=== PATIENT | female | born 1990 | race Caucasian/White ===

== ENCOUNTER 2019-03-05 09:31 | Inpatient (IN) | payer BC ==
[2019-03-07] MEDS ORDERED: Sodium Chloride 0.9% 10 ML Syringe FLUSH PRN (07:29)
[2019-03-07] MEDS: Lactated Ringers 1,000 ML IV SCH ×2 (08:25→14:44)
[2019-03-07] MEDS ORDERED: Nalbuphine 10 MG/1 ML Vial IVPUSH PRN ×2 (11:48→14:42)
[2019-03-07] MEDS ORDERED: Scopolamine 1.5 MG Transdermal Patch ONE (13:57)
[2019-03-07] MEDS ORDERED: Scopolamine 1.5 MG Transdermal Patch TRDERM PRN (13:58)
[2019-03-07] MEDS ORDERED: diphenhydrAMINE 50 MG/ML SDV IVPUSH PRN (14:42)
[2019-03-07] MEDS ORDERED: Promethazine 12.5 MG in Sodium Chloride 0.9% 50 ML IV PRN (14:42)
[2019-03-07] MEDS ORDERED: Naloxone 0.4 MG/ML SDV IVPUSH PRN (14:42)
[2019-03-07] MEDS ORDERED: Ondansetron 4 MG/2 ML SDV IVPUSH PRN (14:42)
[2019-03-07] MEDS ORDERED: Scopolamine 1.5 MG Transdermal Patch TOP ONE (14:42)
[2019-03-07] MEDS ORDERED: diphenhydrAMINE 50 MG/ML SDV IV PRN (14:42)
[2019-03-07] MEDS ORDERED: ePHEDrine 50 MG/ML SDV IVPUSH PRN (14:42)
[2019-03-07] MEDS ORDERED: Naltrexone 50 MG Tab PO PRN (14:42)
[2019-03-07] MEDS ORDERED: Famotidine/Normal Saline 20 MG in Premix Bag 1 BAG IV PRN (14:42)
[2019-03-07] MEDS ORDERED: Lactated Ringers 500 ML IV SCH ×2 (14:45)
--- NOTE | 2019-03-07 16:35 | PCM.DEL ---
L & D Note - General Info Date of Service: 03/07/19 Mother's Due Date: 03/05/19 - Delivery Note Labor: Spontaneous, Induced by Oxytocin Delivery Outcome: Livebirth Infant Delivery Method: Spontaneous Vaginal Delivery-Single ([place]) Delivery Mode: Vacuum Extraction Presentation: Left Occiput Anterior (TAINA) Nuchal Cord: None Prep: Povidone-Iodine (Betadine Anesthesia Type: Intrathecal Amniotic Fluid Description: Clear Episiotomy Type: Midline Laceration: 4th Degree Suture type: Vicryl Suture size: 3-0 Placenta: Intact, Spontaneous, Expressed Cord: 3 Vessels Resuscitation Needed: No [place]: Stimulated, [place] Used Second Stage Interventions: Reports: Second Nurse Assessed Progress of Descent, Second Nurse Reviewed Contraction Pattern, Encouragement Given, Pushing Effectively Induction Criteria - Corona Score Corona Score Dilation: 1-2 cm Corona Score Effacement: 40-50% Corona Score Infant's Station: +1, +2 Corona Score Consistency: Medium Corona Score Cervix Position: Midposition Corona Score Total: 7 Corona Score Presenting Part: Reports: Cephalic - Induction Gestational Age >/= 39 wks: Yes Estimated Pelvis: Reports: Adequate Reassuring Monitoring Strip: Yes Absence of Tachy Systole: Yes - Augmentation Estimated Pelvis: Reports: Adequate Weight Estimated:: Reports: AGA Reassuring Monitoring Strip: Yes Absence of Tachy Systole: Yes Vacuum Extractor Progress Note - Alternative Labor Strategies Considered Alternative Labor Strategies Considered:: Reports: Yes Strategies Considered:: Reports: Contraction Intensity Adequate, Position Changes Used to Facilitate Rotation & Descent, Empty Bladder, Rest Indications Considered:: Reports: Yes Indications:: Reports: Prolonged 2nd Stage, Shortening of 2nd Stage for Maternal Benefit, Suspicion of Immediate or Potential Compromise Time Out:: Reports: Yes Comments:: heart tones were baseline of 100,and minimal variability. Since she was + 3 station,an operative delivery was discussed with the patient,and risks reviewed. Agreed to proceed. - Patient Prepared Patient Prepared:: Reports: Yes Informed Consent:: Reports: Yes Risks: Reports: Yes Risks Include:: Reports: Laceration Anesthesia/Analgesia Adequate:: Reports: Yes Comments:: I attempted to empty bladder by straight cath,no success. - Probability of Success High Probability of Success:: Reports: Yes Weight Estimated:: Reports: AGA Patient Diabetic:: Reports: No Pelvis Adequate:: Reports: Yes Position:: TAINA Asynclitic:: Reports: No Station:: +3 - Application Time Maximum Application Time & Number of Pop-Offs Predetermined:: Reports: Yes Maximum Pressure Maintained in [place] (cm Hg):: 40 Total Application Time (min): *max=20min: 15 (Released during rest.) Number of Times Cup Disengaged:: 4 Type of Vacuum Used:: Reports: Cup: Blas type Vacuum Extraction: Successful - Exit Strategy Exit strategy available:: Reports: Yes and resuscitation teams readily available:: Reports: Yes Comments:: Cup placed on J point.There was noticeable descent and progress with each pull/ contraction.I also created a midline episiotomy during the contraction,to facilitate delivery.Baby was able to be delivered during the 5th pull. - General Info Date of Service: 03/08/19 Functional Status: Reports: Pain Controlled - Review of Systems General: Reports: No Symptoms HEENT: Reports: No Symptoms Pulmonary: Reports: No Symptoms Cardiovascular: Reports: No Symptoms Gastrointestinal: Reports: No Symptoms Genitourinary: Reports: No Symptoms Musculoskeletal: Reports: No Symptoms Skin: Reports: No Symptoms Neurological: Reports: No Symptoms Psychiatric: Reports: No Symptoms - Patient Data Vitals - Most Recent: Last Vital Signs Temp 98.1 F 03/07/19 07:30 Pulse 98 03/07/19 09:33 Resp 18 03/07/19 07:30 BP 132/91 H 03/07/19 09:30 Pulse Ox 97 03/07/19 07:39 Weight - Most Recent: 83.915 kg Med Orders - Current: Current Medications Diphenhydramine HCl (Benadryl) 25 mg IVPUSH ASDIRECTED PRN PRN Reason: EXTRAPYRAMIDAL SIDE EFFECTS Diphenhydramine HCl (Benadryl) 25 mg IV ASDIRECTED PRN PRN Reason: PRURITUS Docusate Sodium (Colace) 100 mg PO BID PRN PRN Reason: Constipation Ephedrine Sulfate (Ephedrine Sulfate) 0 mg IVPUSH ASDIRECTED PRN PRN Reason: Hypotension Lactated Ringer's (Ringers, Lactated) 1,000 mls @ 125 mls/hr IV ASDIRECTED ADRI Last Admin: 03/07/19 14:44 Dose: 125 mls/hr Oxytocin/Sodium Chloride (Pitocin In Ns 20 Units/1,000 Ml) 20 unit in 1,000 mls @ 6 mls/hr IV TITRATE ADRI; Protocol Last Titration: 03/07/19 09:30 Dose: 6 munits/min, 18 mls/hr Famotidine 20 mg/ Premix 50 mls @ 100 mls/hr IV ONETIME PRN PRN Reason: PRURITIS Lactated Ringer's (Ringers, Lactated) 500 mls @ 999 mls/hr IV .SEECOMMENT ADRI Lactated Ringer's (Ringers, Lactated) 500 mls @ 999 mls/hr IV BOLUS ADRI Promethazine HCl 12.5 mg/ (Sodium Chloride) 50.5 mls @ 200 mls/hr IV Q4H PRN PRN Reason: Nausea/Vomiting Ibuprofen (Motrin) 600 mg PO Q4H PRN PRN Reason: Pain Miscellaneous Information (Remove Patch) 1 ea TRDERM ONETIME ONE Stop: 03/08/19 17:01 Nalbuphine HCl (Nubain) 10 mg IVPUSH Q1H PRN PRN Reason: PRURITUS Naloxone HCl (Narcan) 0.1 mg IVPUSH ASDIRECTED PRN PRN Reason: Respiratory Depression Naltrexone HCl (Naltrexone) 25 mg PO ASDIRECTED PRN PRN Reason: REVERSAL Ondansetron HCl (Zofran) 4 mg IVPUSH Q4H PRN PRN Reason: Nausea/Vomiting Oxycodone/Acetaminophen (Percocet 325-5 Mg) 1 tab PO Q4H PRN PRN Reason: Pain (moderate 4-6) Sodium Chloride (Saline Flush) 10 ml FLUSH ASDIRECTED PRN PRN Reason: Keep Vein Open Discontinued Medications Nalbuphine HCl (Nubain) 10 mg IVPUSH Q3H PRN PRN Reason: Pain Last Admin: 03/07/19 11:59 Dose: 10 mg Scopolamine (Transderm-Scop) Confirm Administered Dose 1.5 mg .ROUTE .STK-MED ONE Stop: 03/07/19 13:58 Scopolamine (Transderm-Scop) 1.5 mg TOP ONETIME ONE Stop: 03/07/19 14:43 - Exam General: Alert, Oriented HEENT: Pupils Equal, Pupils Reactive, EOMI, Mucous Membr. Moist/[place] Neck: Supple Lungs: Clear to Auscultation, Normal Respiratory Effort Cardiovascular: Regular Rate, Regular Rhythm GI/Abdominal Exam: Normal Bowel Sounds, Soft, Non-Tender, No Organomegaly, No Distention, No Abnormal Bruit, No Mass, Pelvis Stable (Female) Exam: Normal External Exam, Normal Speculum Exam, Normal Bimanual Exam Back Exam: Normal Inspection, Full Range of Motion Extremities: Normal Inspection, Normal Range of Motion, Non-Tender, No Pedal Edema, Normal Capillary Refill Skin: Warm, Dry, Intact Wound/Incisions: Healing Well Neurological: No New Focal Deficit Psy/Mental Status: Alert, Normal Affect, Normal Mood - Problem List & Annotations (1) Vaginal delivery SNOMED Code(s): 580324684 Code(s): O80 - ENCOUNTER FOR FULL-TERM UNCOMPLICATED DELIVERY Status: Acute Current Visit: Yes (2) Fourth degree perineal laceration SNOMED Code(s): 372118513 Code(s): O70.3 - FOURTH DEGREE PERINEAL LACERATION DURING DELIVERY Status: Acute Current Visit: Yes (3) care and examination SNOMED Code(s): 887321361, 568268795 Code(s): Z39.2 - ENCOUNTER FOR ROUTINE FOLLOW-UP Status: Acute Current Visit: Yes - Problem List Review Problem List Initiated/Reviewed/Updated: Yes - My Orders Last 24 Hours: My Active Orders 03/07/19 07:27 Patient Status [ADT] Routine Monitoring [RC] CONTINUOUS Resuscitation Status Routine 03/07/19 07:29 Sodium Chloride 0.9% [Saline Flush] 10 ml FLUSH ASDIRECTED PRN Peripheral IV Insertion Adult [OM.PC] Routine 03/07/19 07:53 Communication Order [RC] ASDIRECTED Communication Order [RC] ASDIRECTED Communication Order [RC] ASDIRECTED Communication Order [RC] ASDIRECTED Notify Provider [RC] PRN Notify Provider [RC] STAT Vital Signs [RC] PER UNIT ROUTINE 03/07/19 08:00 Lactated Ringers [Ringers, Lactated] 1,000 ml IV ASDIRECTED 03/07/19 08:15 Oxytocin/Normal Saline [Pitocin in NS 20 Units/1,000 ML] 20 unit in 1,000 ml IV TITRATE 03/07/19 16:30 Vital Signs [RC] PFP Acetaminophen/oxyCODONE [Percocet 325-5 MG] 1 tab PO Q4H PRN Docusate Sodium [Colace] 100 mg PO BID PRN Ibuprofen [Motrin] 600 mg PO Q4H PRN Nothing Per Rectum [WOMSER] Per Unit Routine Perineal Care [OM.PC] Per Unit Routine 03/07/19 Dinner Regular Diet [DIET] 03/08/19 05:11 CBC WITH AUTO DIFF [HEME] AM - Plan Plan:: After delivery,patient was stable.Dr Haley came in for 4th degree repair.See his note
[2019-03-07] MEDS ORDERED: Morphine PF 10 MG/10 ML SDV EPIDUR ONE (19:29)
[2019-03-07] MEDS ORDERED: fentaNYL 100 MCG/2 ML SDV IV ONE (19:29)
[2019-03-08] MEDS: Ibuprofen 600 MG Tab PO PRN ×4 (01:27→20:43)
[2019-03-08] MEDS: Docusate Sodium 100 MG Cap PO PRN ×2 (07:46→20:44)
[2019-03-08] MEDS: Acetaminophen/oxyCODONE 325-5 MG Tab PO PRN ×2 (09:20→18:31)
--- NOTE | 2019-03-08 10:55 | PROC ---
DATE OF PROCEDURE: 03/07/2019 HISTORY: Cintia is a 28-year-old primi who came in labor and delivered vaginally an infant with vacuum assist. She sustained a vaginal and rectal laceration, and I was asked to come in to assist in closure. The patient had received an intrathecal anesthetic and had good anesthesia of her vagina and perineum. Inspection was made, revealing a laceration that extended through the posterior vaginal mucosa through the STP muscle with a small 4th degree extension approximately 1 cm off the rectal canal. Tissues were exposed with Gelpi retractor. Using running 3-0 locked suture, the small rectal laceration was closed. Following that, the 2 ends of the STP muscle were identified, grasped with Allis clamps and closed with figure-of- eight suture. The deep rectovaginal space was then closed with interrupted 3-0 Vicryl. Following this, the vaginal mucosa was repaired from the apex to the anal border with subcutaneous closure of the perineal skin with a subcutaneous running closure of the perineal skin. Final vaginal and rectal checks were done and showed intact mucosa and a firmly bolstered STP muscle. The patient is instructed to avoid any rectal insertions such as Tylenol or temperature measurements, enemas, etc. Keep her stools very soft as well. I also discussed with her there was the continued risk of possible rectovaginal fistula because of the 4th degree laceration but, with careful closure obtained, should mitigate these risks. /[id number] IGOR/LINDA
--- NOTE | 2019-03-08 16:11 | PCM.PNPP ---
- General Info Date of Service: 03/08/19 Subjective Update: Doing well. Eating.Lochia has improved. pain well controlled. Functional Status: Reports: Pain Controlled - Review of Systems General: Reports: No Symptoms HEENT: Reports: No Symptoms Pulmonary: Reports: No Symptoms Cardiovascular: Reports: No Symptoms Gastrointestinal: Reports: No Symptoms Genitourinary: Reports: No Symptoms Musculoskeletal: Reports: No Symptoms Skin: Reports: No Symptoms Neurological: Reports: No Symptoms Psychiatric: Reports: No Symptoms - General Info Date of Service: 03/08/19 - Patient Data Vital Signs - Most Recent: Last Vital Signs Temp 98 F 03/08/19 08:00 Pulse 82 03/08/19 08:00 Resp 18 03/08/19 08:00 BP 116/70 03/08/19 08:00 Pulse Ox 96 03/08/19 08:00 Weight - Most Recent: 83.915 kg I&O - Last 24 Hours: Intake & Output 03/08/19 03/08/19 03/08/19 06:59 14:59 22:59 Intake Total 600 Balance 600 Lab Results - Last 24 Hours: Laboratory Results - last 24 hr 03/08/19 Range/Units 06:40 WBC 6.9 (4.5-12.0) X10-3/uL RBC 3.85 (3.23-5.20) x10(6)uL Hgb 9.3 L (11.5-15.5) g/dL Hct 29.0 L (30.0-51.3) % MCV 75.4 L (80-96) fL MCH 24.2 L (27.7-33.6) pg MCHC 32.1 L (32.2-35.4) g/dL RDW 14.8 (11.5-15.5) % Plt Count 177 (125-369) X10(3)uL MPV 10.6 H (7.4-10.4) fL Neut % (Auto) 62.1 (46-82) % Lymph % (Auto) 29.3 (13-37) % [place] % (Auto) 7.1 (4-12) % Eos % (Auto) 1 (1.0-5.0) % Baso % (Auto) 0 (0-2) % Neut # (Auto) 4.3 (1.6-8.3) # Lymph # (Auto) 2.0 (0.6-5.0) # [place] # (Auto) 0.5 (0.0-1.3) # Eos # (Auto) 0.1 (0.0-0.8) # Baso # (Auto) 0.0 (0.0-0.2) # Med Orders - Current: Current Medications Diphenhydramine HCl (Benadryl) 25 mg IVPUSH ASDIRECTED PRN PRN Reason: EXTRAPYRAMIDAL SIDE EFFECTS Diphenhydramine HCl (Benadryl) 25 mg IV ASDIRECTED PRN PRN Reason: PRURITUS Docusate Sodium (Colace) 100 mg PO BID PRN PRN Reason: Constipation Last Admin: 03/08/19 07:46 Dose: 100 mg Ephedrine Sulfate (Ephedrine Sulfate) 0 mg IVPUSH ASDIRECTED PRN PRN Reason: Hypotension Lactated Ringer's (Ringers, Lactated) 1,000 mls @ 125 mls/hr IV ASDIRECTED ADRI Last Admin: 03/07/19 14:44 Dose: 125 mls/hr Oxytocin/Sodium Chloride (Pitocin In Ns 20 Units/1,000 Ml) 20 unit in 1,000 mls @ 6 mls/hr IV TITRATE ADRI; Protocol Last Titration: 03/07/19 15:40 Dose: 999 mls/hr Famotidine 20 mg/ Premix 50 mls @ 100 mls/hr IV ONETIME PRN PRN Reason: PRURITIS Lactated Ringer's (Ringers, Lactated) 500 mls @ 999 mls/hr IV .SEECOMMENT ADRI Lactated Ringer's (Ringers, Lactated) 500 mls @ 999 mls/hr IV BOLUS ADRI Promethazine HCl 12.5 mg/ (Sodium Chloride) 50.5 mls @ 200 mls/hr IV Q4H PRN PRN Reason: Nausea/Vomiting Ibuprofen (Motrin) 600 mg PO Q4H PRN PRN Reason: Pain Last Admin: 03/08/19 13:34 Dose: 600 mg Miscellaneous Information (Remove Patch) 1 ea TRDERM ONETIME ONE Stop: 03/08/19 17:01 Nalbuphine HCl (Nubain) 10 mg IVPUSH Q1H PRN PRN Reason: PRURITUS Naloxone HCl (Narcan) 0.1 mg IVPUSH ASDIRECTED PRN PRN Reason: Respiratory Depression Naltrexone HCl (Naltrexone) 25 mg PO ASDIRECTED PRN PRN Reason: REVERSAL Last Admin: 03/07/19 16:52 Dose: 25 mg Ondansetron HCl (Zofran) 4 mg IVPUSH Q4H PRN PRN Reason: Nausea/Vomiting Last Admin: 03/07/19 18:01 Dose: 4 mg Oxycodone/Acetaminophen (Percocet 325-5 Mg) 1 tab PO Q4H PRN PRN Reason: Pain (moderate 4-6) Last Admin: 03/08/19 09:20 Dose: 1 tab Sodium Chloride (Saline Flush) 10 ml FLUSH ASDIRECTED PRN PRN Reason: Keep Vein Open Discontinued Medications Nalbuphine HCl (Nubain) 10 mg IVPUSH Q3H PRN PRN Reason: Pain Last Admin: 03/07/19 11:59 Dose: 10 mg Scopolamine (Transderm-Scop) Confirm Administered Dose 1.5 mg .ROUTE .STK-MED ONE Stop: 03/07/19 13:58 Last Admin: 03/07/19 17:30 Dose: Not Given Scopolamine (Transderm-Scop) 1.5 mg TOP ONETIME ONE Stop: 03/07/19 14:43 Last Admin: 03/07/19 13:58 Dose: 1.5 mg - Interaction Disposition, : [place] in Room with Family Feeding: Attempted ; Nursed Fair/Poor Support Person: - Recovery Exam Fundal Tone: Firm Fundal Level: 1 Fingerbreadths Above Umbilicus Fundal Placement: Right Lochia Amount: Moderate Lochia Color: Rubra/Red Perineum Description: Intact, Minimal Bruising/Swelling, Redness, Edematous, Hematoma Episiotomy/Laceration: Approximated - Problem List & Annotations (1) Vaginal delivery SNOMED Code(s): 822197341 Code(s): O80 - ENCOUNTER FOR FULL-TERM UNCOMPLICATED DELIVERY Status: Acute Current Visit: Yes (2) Fourth degree perineal laceration SNOMED Code(s): 109726564 Code(s): O70.3 - FOURTH DEGREE PERINEAL LACERATION DURING DELIVERY Status: Acute Current Visit: Yes - Problem List Review Problem List Initiated/Reviewed/Updated: Yes - My Orders Last 24 Hours: My Active Orders 03/07/19 16:30 Vital Signs [RC] 00,08,16 Acetaminophen/oxyCODONE [Percocet 325-5 MG] 1 tab PO Q4H PRN Docusate Sodium [Colace] 100 mg PO BID PRN Ibuprofen [Motrin] 600 mg PO Q4H PRN Nothing Per Rectum [WOMSER] Per Unit Routine Perineal Care [OM.PC] Per Unit Routine 03/07/19 Dinner Regular Diet [DIET] - Plan Plan:: Continue current plan.
[2019-03-08] MEDS ORDERED: Measles, Mumps & Rubella Vaccine 0.5 ML SDV SUBCUT ONE (18:56)
[2019-03-09] MEDS: Ibuprofen 600 MG Tab PO PRN ×2 (03:33→14:02)
[2019-03-09] MEDS: Acetaminophen/oxyCODONE 325-5 MG Tab PO PRN ×3 (06:02→19:26)
--- NOTE | 2019-03-09 07:36 | PCM.PNPP ---
- General Info Date of Service: 03/09/19 Subjective Update: Doing well. Eating.Lochia has improved. pain well controlled. Functional Status: Reports: Pain Controlled, Tolerating Diet - Review of Systems General: Reports: No Symptoms HEENT: Reports: No Symptoms Pulmonary: Reports: No Symptoms Cardiovascular: Reports: No Symptoms Gastrointestinal: Reports: No Symptoms Genitourinary: Reports: No Symptoms Musculoskeletal: Reports: No Symptoms Skin: Reports: No Symptoms Neurological: Reports: No Symptoms Psychiatric: Reports: No Symptoms - General Info Date of Service: 03/09/19 - Patient Data Vital Signs - Most Recent: Last Vital Signs Temp 98.3 F 03/08/19 23:00 Pulse 74 03/08/19 23:00 Resp 18 03/08/19 23:00 BP 123/75 03/08/19 23:00 Pulse Ox 98 03/08/19 23:00 Weight - Most Recent: 83.915 kg Med Orders - Current: Current Medications Diphenhydramine HCl (Benadryl) 25 mg IVPUSH ASDIRECTED PRN PRN Reason: EXTRAPYRAMIDAL SIDE EFFECTS Diphenhydramine HCl (Benadryl) 25 mg IV ASDIRECTED PRN PRN Reason: PRURITUS Docusate Sodium (Colace) 100 mg PO BID PRN PRN Reason: Constipation Last Admin: 03/08/19 20:44 Dose: 100 mg Ephedrine Sulfate (Ephedrine Sulfate) 0 mg IVPUSH ASDIRECTED PRN PRN Reason: Hypotension Lactated Ringer's (Ringers, Lactated) 1,000 mls @ 125 mls/hr IV ASDIRECTED ADRI Last Admin: 03/07/19 14:44 Dose: 125 mls/hr Oxytocin/Sodium Chloride (Pitocin In Ns 20 Units/1,000 Ml) 20 unit in 1,000 mls @ 6 mls/hr IV TITRATE ADRI; Protocol Last Titration: 03/07/19 15:40 Dose: 999 mls/hr Famotidine 20 mg/ Premix 50 mls @ 100 mls/hr IV ONETIME PRN PRN Reason: PRURITIS Lactated Ringer's (Ringers, Lactated) 500 mls @ 999 mls/hr IV .SEECOMMENT ADRI Lactated Ringer's (Ringers, Lactated) 500 mls @ 999 mls/hr IV BOLUS ADRI Promethazine HCl 12.5 mg/ (Sodium Chloride) 50.5 mls @ 200 mls/hr IV Q4H PRN PRN Reason: Nausea/Vomiting Ibuprofen (Motrin) 600 mg PO Q4H PRN PRN Reason: Pain Last Admin: 03/09/19 03:33 Dose: 600 mg Nalbuphine HCl (Nubain) 10 mg IVPUSH Q1H PRN PRN Reason: PRURITUS Naloxone HCl (Narcan) 0.1 mg IVPUSH ASDIRECTED PRN PRN Reason: Respiratory Depression Naltrexone HCl (Naltrexone) 25 mg PO ASDIRECTED PRN PRN Reason: REVERSAL Last Admin: 03/07/19 16:52 Dose: 25 mg Ondansetron HCl (Zofran) 4 mg IVPUSH Q4H PRN PRN Reason: Nausea/Vomiting Last Admin: 03/07/19 18:01 Dose: 4 mg Oxycodone/Acetaminophen (Percocet 325-5 Mg) 1 tab PO Q4H PRN PRN Reason: Pain (moderate 4-6) Last Admin: 03/09/19 06:02 Dose: 1 tab Sodium Chloride (Saline Flush) 10 ml FLUSH ASDIRECTED PRN PRN Reason: Keep Vein Open Discontinued Medications Measles/Mumps/Rubella Vaccine Live (M-M-R Ii Vaccine) 0.5 ml SUBCUT .ONCE ONE Stop: 03/08/19 18:57 Miscellaneous Information (Remove Patch) 1 ea TRDERM ONETIME ONE Stop: 03/08/19 17:01 Last Admin: 03/08/19 18:32 Dose: 1 ea Nalbuphine HCl (Nubain) 10 mg IVPUSH Q3H PRN PRN Reason: Pain Last Admin: 03/07/19 11:59 Dose: 10 mg Scopolamine (Transderm-Scop) Confirm Administered Dose 1.5 mg .ROUTE .STK-MED ONE Stop: 03/07/19 13:58 Last Admin: 03/07/19 17:30 Dose: Not Given Scopolamine (Transderm-Scop) 1.5 mg TOP ONETIME ONE Stop: 03/07/19 14:43 Last Admin: 03/07/19 13:58 Dose: 1.5 mg - Infant Interaction Infant Disposition, : [place] in Room with Family Feeding: Attempted ; Nursed Fair/Poor Support Person: - Recovery Exam Fundal Tone: Firm Fundal Level: At Umbilicus Fundal Placement: Midline Lochia Amount: Moderate Lochia Color: Rubra/Red Perineum Description: Edematous Episiotomy/Laceration: Approximated Bladder Status: Voiding Urinary Elimination: Voided - Exam General: Alert, Oriented HEENT: Pupils Equal Neck: Supple Lungs: Clear to Auscultation, Normal Respiratory Effort Cardiovascular: Regular Rate, Regular Rhythm GI/Abdominal Exam: Normal Bowel Sounds, Soft, Non-Tender, No Organomegaly, No Distention, No Abnormal Bruit, No Mass, Pelvis Stable Extremities: Normal Inspection, Normal Range of Motion, Non-Tender, No Pedal Edema, Normal Capillary Refill Skin: Warm, Dry, Intact Wound/Incisions: Healing Well Neurological: No New Focal Deficit Psy/Mental Status: Alert, Normal Affect, Normal Mood - Problem List & Annotations (1) care and examination SNOMED Code(s): 175976118, 462129646 Code(s): Z39.2 - ENCOUNTER FOR ROUTINE FOLLOW-UP Status: Acute Current Visit: Yes (2) Fourth degree perineal laceration SNOMED Code(s): 057434218 Code(s): O70.3 - FOURTH DEGREE PERINEAL LACERATION DURING DELIVERY Status: Acute Current Visit: Yes (3) Vaginal delivery SNOMED Code(s): 421139081 Code(s): O80 - ENCOUNTER FOR FULL-TERM UNCOMPLICATED DELIVERY Status: Acute Current Visit: Yes - Problem List Review Problem List Initiated/Reviewed/Updated: Yes - My Orders Last 24 Hours: My Active Orders 03/08/19 18:58 Vaccines to be Administered [RC] PER UNIT ROUTINE 03/09/19 07:34 Ready for Discharge [RC] PER UNIT ROUTINE - Plan Plan:: Alivia may be discharged home today on oral narcotics for pain control. Use stool softeners. Recheck in 1 week.
[2019-03-09] MEDS: Docusate Sodium 100 MG Cap PO PRN (14:02)
== END 2019-03-09 19:30 | disposition home or self-care (01) | DRG 560 ==
LOC: FB.OB 03-07 07:23 → OBSVTOIN 03-07 11:30 → EDSTATUS 03-07 11:40
PROVIDERS: ADMIT Family Medicine; ATTEND Family Medicine
PROC: 10D07Z6 Extraction of Products of Conception, Vacuum, Via Natural or Artificial Opening (ICD-10-PCS; principal; 2019-03-07)
PROC: 3E033VJ Introduction of Other Hormone into Peripheral Vein, Percutaneous Approach (ICD-10-PCS; 2019-03-07)
PROC: 10907ZC Drainage of Amniotic Fluid, Therapeutic from Products of Conception, Via Natural or Artificial Opening (ICD-10-PCS; 2019-03-07)
PROC: 0DQP0ZZ Repair Rectum, Open Approach (ICD-10-PCS; 2019-03-07)
PROC: 3E0R3BZ Introduction of Anesthetic Agent into Spinal Canal, Percutaneous Approach (ICD-10-PCS; 2019-03-07)
PROC: 0W8NXZZ Division of Female Perineum, External Approach (ICD-10-PCS; 2019-03-07)
DX: O48.0 Post-term pregnancy (principal); Z3A.40 40 weeks gestation of pregnancy; Z37.0 Single live birth; Z87.891 Personal history of nicotine dependence; O70.3 Fourth degree perineal laceration during delivery
CPT/HCPCS: 36415; 59409; 85025; 90471; 90707; A9270-GY; J2270; J2300; J2405; J2590; J3010; J3490; J7120